=== PATIENT | male | born 2000 | race Caucasian/White ===

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

== ENCOUNTER 2020-08-24 20:17 | Emergency (ER) | payer MEDICAID, SELFPAY ==
[~2020-08-24] VITALS: Ht 180.3 cm; Wt 68.0 kg
[~2020-08-24 20:17] MED LIST: CAT.1 PO; ONDA4TAB5 PO; QUET300T2 PO
[2020-08-24 20:31] VITALS: BP_SYST 141
--- NOTE | 2020-08-24 23:10 | NUR ---
Per clerk of court, pt LWBS.
== END 2020-08-24 23:10 | disposition left against medical advice (07) ==
LOC: SED 20:17
DX: R11.10 Vomiting, unspecified (principal); Z53.21 Procedure and treatment not carried out due to patient leaving prior to being seen by health care provider
CPT/HCPCS: 93005

== ENCOUNTER 2021-06-08 17:42 | Emergency (ER) | payer OTHER, MEDICAID ==
[~2021-06-08] VITALS: Ht 177.8 cm; Wt 74.8 kg
[2021-06-08 17:55] VITALS: BP_SYST 127
--- NOTE | 2021-06-08 18:04 | NUR ---
Patient to ER bed 1 to gown for evaluation. Side rails up. Report given to Emily DAVIDSON.
--- NOTE | 2021-06-08 18:21 | NUR ---
PT BIBA FROM HOME S/P OVERDOSE ON WHAT PT NOW ADMITS TO BE FENTANYL BOTH SMOKED AND INGESTED PILL FORM. PT DENIES SUICIDAL IDEATION, STATED HIS MOM GOT HIM UPSET AND WAS VERY ANGRY. PT CRYING WHILE TELLING ME THIS. TALKED TO PT IN LENGTH ABOUT SIDE EFFECTS OF ILLICIT DRUGS. PT VERBALIZED WANTING TO STOP FOR HIS 3 YEAR OLD DAUGHTER. PT WANTS GRANMOTHER TO BE CALLED FOR SUPPORT. PER RUN SHEET AND TRIAGE NOTE, PT WAS GIVEN NARCAN X 1 AT HOME BY FAMILY. PT CURRENTLY AAOx3, RESP EVEN AND UNLABORED, ON RA @99%, VSS. DENIES ANY SOB OR PAIN AT THIS TIME. SKIN W/D WITH MULTIPLE ACNE /SCABS NOTED TO FACE AND EXTREMITIES. WATER OFFERED AND TAKEN, WAITING FOR ER MD EVALUATION.
--- NOTE | 2021-06-08 18:31 | NUR ---
ER at bedside examining patient.
--- NOTE | 2021-06-08 18:51 | NUR ---
GRANDMOTHER CALLED, UPDATED ON STATUS. STATES UNABLE TO COME IN , BUT WILL TELL HIS MOTHER TO COME IN. PT INFORMED.
--- NOTE | 2021-06-08 19:28 | NUR ---
ASSUMED CARE OF PT FROM LESLEY DAVIDSON
--- NOTE | 2021-06-08 20:00 | NUR ---
PT IS RESTING CALMLY IN BED. VSS NORMAL. REQUESTING WATER
[2021-06-08] MEDS ORDERED: NALO4SPR NS (20:31)
--- NOTE | 2021-06-08 20:42 | NUR ---
Patient given written and verbal discharge instructions and verbalizes understanding. ER MD discussed with patient the results and treatment provided. Patient in stable condition. ID arm band removed. IV catheter removed intact and dressing applied, no active bleeding. Rx of NARCAN given. Patient educated on pain management and to follow up with PMD. Pain Scale 0/10. Opportunity for questions provided and answered. Medication side effect fact sheet provided.
[2021-06-08 20:45] VITALS: BP_SYST 133
== END 2021-06-08 20:45 | disposition home or self-care (01) ==
LOC: SED 17:42
DX: T40.2X1A Poisoning by other opioids, accidental (unintentional), initial encounter (principal); T40.411A Poisoning by fentanyl or fentanyl analogs, accidental (unintentional), initial encounter; Z88.2 Allergy status to sulfonamides; Z88.8 Allergy status to other drugs, medicaments and biological substances; Z79.899 Other long term (current) drug therapy; F41.9 Anxiety disorder, unspecified; Y92.89 Other specified places as the place of occurrence of the external cause
CPT/HCPCS: 99283

== ENCOUNTER 2022-11-06 20:52 | Emergency (ER) | payer OTHER, MEDICAID ==
[~2022-11-06] VITALS: Ht 180.3 cm; Wt 63.5 kg
[~2022-11-06 20:52] MED LIST changes: +NALO4SPR NS
[2022-11-06 21:00] VITALS: BP_SYST 145
--- NOTE | 2022-11-06 21:00 | NUR ---
Triaged and placed patient back to the waiting room. No acute respiratory distress at this time. VSS. Informed patient to notify ED staff for any changes in condition or worsening of symptoms while waiting to be seen by a provider. Patient verbalized understanding.
[2022-11-06] MEDS ORDERED: ASPIRIN 81 MG TAB.CHEW PO ONE (21:15)
--- NOTE | 2022-11-06 21:16 | NUR ---
EKG performed at by NA[facility]. Physician given copy of EKG for review.
[2022-11-06 21:36] LABS: BASOPHILS # (AUTO) 0.1 K/uL (0.0-0.2); BASOPHILS % (AUTO) 0.9 % (0.0-2.0); EOSINOPHILS # (AUTO) 0.2 K/uL (0.0-0.4); EOSINOPHILS % (AUTO) 2.1 % (0.0-4.0); HEMATOCRIT 40.8 % (36-54); HEMOGLOBIN 13.8 g/dL (14.0-18.0); LYMPHOCYTES % (AUTO) 31.2 % (20.5-51.5); MEAN CORPUSCULAR HEMOGLOBIN 30 pg (27-31); MEAN CORPUSCULAR HGB CONC 34 % (32-36); MEAN CORPUSCULAR VOLUME 89 fL (79.0-98.0); MONOCYTES # (AUTO) 0.5 K/uL (0.0-1.0); MONOCYTES % (AUTO) 5.7 % (1.7-9.3); NEUTROPHILS # (AUTO) 5.8 K/uL (1.8-7.7); NEUTROPHILS % (AUTO) 60.1 % (40.0-70.0); PLATELET COUNT (AUTO) 349 K/uL (130-430); RED CELL DISTRIBUTION WIDTH 12.9 % (9.0-15.0); WHITE BLOOD COUNT (AUTO) 9.6 K/uL (4.8-10.8)
[2022-11-06 21:40] LABS: ANION GAP 4 (5-15); CALCIUM 9.5 mg/dL (8.4-11.0); CHLORIDE 103 mmol/L (98-107); CREATININE 0.88 mg/dL (0.55-1.30); GLUCOSE 84 mg/dL (70-99); UREA NITROGEN, BLOOD 13 mg/dL (8-21)
[2022-11-06 21:41] LABS: GFR AFRICAN AMERICAN 139 mL/min (>90)
[2022-11-06 21:50] LABS: ALANINE AMINOTRANSFERASE 28 U/L (12-78); ALBUMIN 4.2 g/dL (3.4-4.8); ASPARTATE AMINOTRANSFERASE 18 U/L (10-37); TOTAL BILIRUBIN 0.5 mg/dL (0.0-1.0)
--- NOTE | 2022-11-06 22:25 | NUR ---
Patient ambulated to ER bed 4 with a steady gait. Instructed to notify ED staff for any changes in condition or worsening of symptoms. Patient verbalized understanding.
--- NOTE | 2022-11-06 22:58 | NUR ---
Pt medicated as ordered; tolerated well.
[2022-11-06] MEDS ORDERED: LORazepam 1 MG TABLET PO ONE (23:30)
--- NOTE | 2022-11-06 23:59 | NUR ---
Patient given written and verbal discharge instructions and verbalizes understanding. ER MD Prescott discussed with patient the results and treatment provided. Patient in stable condition. ID arm band removed. Patient educated on pain management and to follow up with PMD. Opportunity for questions provided and answered.
[2022-11-07 00:13] VITALS: BP_SYST 132
== END 2022-11-06 23:58 | disposition home or self-care (01) ==
LOC: SED 20:52
DX: R07.9 Chest pain, unspecified (principal); F15.10 Other stimulant abuse, uncomplicated; T44.1X5A Adverse effect of other parasympathomimetics [cholinergics], initial encounter; F14.10 Cocaine abuse, uncomplicated; F19.10 Other psychoactive substance abuse, uncomplicated; R03.0 Elevated blood-pressure reading, without diagnosis of hypertension; Z88.2 Allergy status to sulfonamides; Z79.899 Other long term (current) drug therapy
CPT/HCPCS: 36415; 71045; 80053; 83880; 84484; 85025; 93005; 99285

== ENCOUNTER 2024-05-19 08:35 | Emergency (ER) | payer OTHER, MEDICAID ==
[~2024-05-19] VITALS: Ht 180.3 cm; Wt 70.3 kg
[2024-05-19 08:39] VITALS: BP_SYST 125; PULSE 103; RESP 16; TEMP 98.7; O2SAT 97
[2024-05-19] MEDS: NACL 0.9% 1,000 ML IV ONE (09:09)
[2024-05-19] MEDS: ONDANSETRON HCL 4 MG/2 ML VIAL IVP ONE (09:18)
[2024-05-19 09:20] LABS: LYMPHOCYTES # (AUTO) 0.8 K/uL (1.0-5.5); MONOCYTES # (AUTO) 0.4 K/uL (0.0-1.0); NEUTROPHILS # (AUTO) 9.8 K/uL (1.8-7.7)
[2024-05-19 09:22] LABS: HEMATOCRIT 42.4 % (36-54); HEMOGLOBIN 14.4 g/dL (14.0-18.0); LYMPHOCYTES % (AUTO) 7.5 % (20.5-51.5); MEAN CORPUSCULAR HEMOGLOBIN 30 pg (27-31); MEAN CORPUSCULAR HGB CONC 34 % (32-36); MEAN CORPUSCULAR VOLUME 89 fL (79.0-98.0); MONOCYTES % (AUTO) 3.7 % (1.7-9.3); NEUTROPHILS % (AUTO) 88.8 % (40.0-70.0); PLATELET COUNT (AUTO) 278 K/uL (130-430); RED BLOOD CELL COUNT(AUTO) 4.77 MIL/uL (4.2-6.2); RED CELL DISTRIBUTION WIDTH 12.4 % (9.0-15.0)
[2024-05-19 09:31] VITALS: BP_SYST 127; PULSE 89; RESP 16; TEMP 98.6; O2SAT 96
[2024-05-19 09:32] LABS: BILIRUBIN,URINE NEGATIVE (NEGATIVE); BLOOD, URINE NEGATIVE (NEGATIVE); CLARITY/URINE CLEAR (CLEAR); COLOR,URINE YELLOW (YELLOW); GLUCOSE,URINE NEGATIVE (NEGATIVE); KETONES,URINE 3+ (NEGATIVE); LEUKOCYTE ESTERASE ,URINE NEGATIVE (NEGATIVE); NITRITE, URINE NEGATIVE (NEGATIVE); PROTEIN URINE 2+ (NEGATIVE); UROBILINOGEN,URINE 0.2 (0.2-1.0)
[2024-05-19 09:36] LABS: ALANINE AMINOTRANSFERASE 20 U/L (12-78); ALBUMIN 5.2 g/dL (3.4-4.8); ANION GAP 16 (5-15); ASPARTATE AMINOTRANSFERASE 26 U/L (10-37); BILIRUBIN,DIRECT 0.2 mg/dL (0.0-0.3); CARBON DIOXIDE 24 mmol/L (23-29); CHLORIDE 101 mmol/L (98-107); CREATININE 1.01 mg/dL (0.55-1.30); GFR AFRICAN AMERICAN 117 mL/min (>90); GLUCOSE 99 mg/dL (74-106); LIPASE 17 U/L (16-77); POTASSIUM 3.7 mmol/L (3.5-5.1); SODIUM SERUM 141 mmol/L (136-145); TOTAL PROTEIN, SERUM 8.7 g/dL (6.4-8.3); UREA NITROGEN, BLOOD 23 mg/dL (8-21)
[2024-05-19 09:38] LABS: ALCOHOL, BLOOD < 3 mg/dL (<10); GFR NON AFRICAN-AMERICAN 96 mL/min (>90)
[2024-05-19 09:58] LABS: CALCIUM 9.5 mg/dL (8.4-11.0)
[2024-05-19 10:28] LABS: BACTERIA,URINE MANY /HPF (None Seen); RBC,URINE 0-3 /HPF (0-3)
[2024-05-19 10:30] LABS: MUCUS,URINE 2+ /LPF (None Seen)
[2024-05-19 10:41] LABS: BARBITURATE, URINE NEGATIVE (NEG <=200); BENZODIAZEPINE, URINE POSITIVE (NEG <=150); CANNABINOID, URINE POSITIVE (NEG <=50); COCAINE, URINE POSITIVE (NEG <=150); METHAMPHETAMINES SCREEN,URINE NEGATIVE (NEG <=500); URINE AMPHETAMINE POSITIVE (NEG <=500); URINE METHADONE NEGATIVE (NEG <=200)
[2024-05-19 10:42] LABS: OPIATE, URINE NEGATIVE (NEG <=100); PHENCYCLIDINE SCREEN,URINE NEGATIVE (NEG <=25); URINE OXYCODONE SCREEN POSITIVE (NEG <=100)
[2024-05-19 10:43] LABS: UR TRICYCLIC ANTIDEPRESSANTS NEGATIVE (NEG <=300)
== END 2024-05-19 09:40 | disposition left against medical advice (07) ==
LOC: SED 08:35
DX: F11.23 Opioid dependence with withdrawal (principal); R11.2 Nausea with vomiting, unspecified; F17.200 Nicotine dependence, unspecified, uncomplicated; F12.90 Cannabis use, unspecified, uncomplicated; Z88.2 Allergy status to sulfonamides; Z88.8 Allergy status to other drugs, medicaments and biological substances; Z79.899 Other long term (current) drug therapy
CPT/HCPCS: 99283; 96374; 96361; 80307; 80076; 80048; 83690; 85025; 87086; 36415; 81000; 81001; 81015; G0482; J2405; J7030